=== PATIENT | male | born 1950 | race Caucasian/White ===

== ENCOUNTER 2018-05-29 05:35 | Day surgery (SDC) | payer OTHER, MEDICAID ==
[~2018-05-29] VITALS: Ht 175.3 cm; Wt 72.6 kg
[2018-05-29] MEDS ORDERED: CEFAZOLIN SOD 1 GM/ ISO 50 ML PREMIX IV ONE (07:00)
[2018-05-29] MEDS ORDERED: GLYCOPYRROLATE 0.2 MG/ML VIAL IJ ONE (07:30)
[2018-05-29] MEDS ORDERED: NEOSTIGMINE METHYLSULFATE 1 MG/ML, 10 ML VIAL IVP ONE (07:30)
[2018-05-29] MEDS ORDERED: NS 1000 ML IV.SOLN IV ONE (07:30)
[2018-05-29] MEDS ORDERED: SEVOFLURANE 15 MIN GAS INH ONE (07:30)
[2018-05-29] MEDS ORDERED: fentaNYL CITRATE 250 MCG/5 ML AMP IV ONE (07:30)
[2018-05-29] MEDS ORDERED: MIDAZOLAM HCL 5 MG/5 ML VIAL IVP ONE (07:30)
[2018-05-29] MEDS ORDERED: ONDANSETRON HCL 4 MG/2 ML VIAL IVP ONE (07:30)
[2018-05-29] MEDS ORDERED: IOHEXOL 50 ML IV ONE (07:41)
[2018-05-29] MEDS ORDERED: LR 1,000 ML IV SCH (08:25)
[2018-05-29] MEDS ORDERED: METOCLOPRAMIDE HCL 10 MG/2 ML VIAL IVP PRN (08:30)
[2018-05-29] MEDS ORDERED: HYDROmorphone 1 MG INJ. 1 MG/ML AMPUL IVP PRN ×2 (08:30→08:45)
[2018-05-29] MEDS ORDERED: MORPHINE 4 MG/ML INJ. SYRINGE IVP PRN ×3 (08:30)
[2018-05-29] MEDS ORDERED: D5/0.45 NS 1,000 ML IV SCH (08:45)
[2018-05-29] MEDS ORDERED: HYDROcodone/ACETAMIN 5-325 MG TAB (NORCO/ VICODIN) PO PRN ×2 (08:45)
[2018-05-29 10:46] VITALS: BP_SYST 134
== END 2018-05-29 11:00 | disposition home or self-care (01) ==
LOC: SDS 05:35 → SMU 05:35 → SDS 11:00
PROVIDERS: ATTEND Colon & Rectal Surgery
DX: K80.10 Calculus of gallbladder with chronic cholecystitis without obstruction (principal); D64.9 Anemia, unspecified; Z98.49 Cataract extraction status, unspecified eye; Z98.890 Other specified postprocedural states; Z80.8 Family history of malignant neoplasm of other organs or systems; Z80.1 Family history of malignant neoplasm of trachea, bronchus and lung; Z79.899 Other long term (current) drug therapy; F33.41 Major depressive disorder, recurrent, in partial remission; Z87.891 Personal history of nicotine dependence
CPT/HCPCS: 47563; 74300; 88304; C1727; J0690; J2250; J2405; J2710; J3010; J3490; J7030; J7120; Q9967